=== PATIENT | male | born 1955 | race Caucasian/White ===

== ENCOUNTER 2023-11-02 11:24 | Emergency (ER) | payer OTHER ==
[~2023-11-02] VITALS: Ht 180.3 cm; Wt 99.7 kg
[2023-11-02 11:38] LABS: BASOPHILS 1.6 % (0-2); EOSINOPHILS 0.9 % (0-6); HEMATOCRIT 51.5 % (35.0-50.0); HEMOGLOBIN 17.8 g/dL (12.0-18.0); MCH 33.8 (27-36); MCHC 34.6 g/dl (30-36); MCV 97.7 fl (81-99); MONOCYTES 9.5 % (0-12); PLATELET COUNT 235 K/uL (140-440); RBC 5.27 M/ul (4.3-5.7); RDW 14.7 (10.5-15.0)
[2023-11-02] MEDS ORDERED: ASPIRIN 81 MG CHEW PO ONE (11:45)
[2023-11-02] MEDS ORDERED: NITROGLYCERIN 0.4 MG SUBL SL PRN (11:45)
[2023-11-02 11:53] LABS: ALBUMIN 3.8 g/dL (3.4-5.0); ALBUMIN/GLOBULIN RATIO 0.97 (1.1-2.4); ANION GAP 13.2 (7-21); BILIRUBIN, TOTAL 0.8 ng/dL (0.2-1.0); BUN/CREATININE RATIO 11.29 (6.0-28.6); CALCIUM 9.2 mg/dL (8.5-10.1); CREATININE, SERUM 1.24 mg/dL (0.70-1.30); MAGNESIUM 1.8 mg/dL (1.8-2.4); POTASSIUM 4.2 mmol/L (3.5-5.1); PROTEIN, TOTAL 7.7 g/dL (6.4-8.2)
--- OUTSIDE RECORDS SUMMARY | 2023-11-02 13:31 | XMS ---
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 No recent Security Events currently on file CRITERIA MET - [facility] - [facility] - 2 Visits in 30 Days CARE PROVIDERS -[facility] Dentist: Doctor Of Dental Medicine [facility] Reading PHONE: [phone] -[place]- Dentist: Doctor Of Dental Medicine [facility] PHONE: [phone] [facility]/Center: [facility] Current [facility] \F\ [place] ([facility]) [facility] PHONE: [phone] Le[place]on has no Care Guidelines for this patient. E.D. VISIT COUNT (12 MO.) 3 [facility] 1 [facility] [place]. TOTAL 4 NOTE: Visits indicate total known visits. ED/UCC VISIT TRACKING (12 MO.) 11/02/2023 11:25 [facility] [place] [place] TYPE: Emergency COMPLAINT: - CHEST PAIN 10/20/2023 11:01 [facility] [place] TYPE: Emergency DIAGNOSES: - Homicidal ideations - Patient's other noncompliance with medication regimen for other reason - Suicidal ideations - MENTAL HEALTH 06/07/2023 14:59 [employer] [facility] [place] TYPE: Emergency DIAGNOSES: - ST elevation (STEMI) myocardial infarction of unspecified site - CHEST PAINS 05/15/2023 18:47 [employer] [facility] [place] TYPE: Emergency DIAGNOSES: - ST elevation (STEMI) myocardial infarction involving right coronary artery - Chest Pain INPATIENT VISIT TRACKING (12 MO.) 06/07/2023 16:00 [facility] TYPE: Medical Surgical COMPLAINT: - STEMI Inferior AL V Tachy COPD DIAGNOSES: 0. Non-ST elevation (NSTEMI) myocardial infarction 1. Stenosis of coronary artery stent, initial encounter 2. ST elevation (STEMI) myocardial infarction involving other coronary artery of inferior wall 3. Hypopituitarism 4. Essential (primary) hypertension 5. Hyperlipidemia, unspecified 6. Gastro-esophageal reflux disease without esophagitis 7. Hypotension, unspecified 8. Atherosclerotic heart disease of [place] coronary artery without angina pectoris 9. Depression, unspecified 10. Male erectile dysfunction, unspecified 11. Patient's noncompliance with other medical treatment and regimen due to unspecified reason 12. Other surgical procedures as the cause of abnormal reaction of the patient, or of later complication, without mention of misadventure at the time of the procedure 13. Other specified places as the place of occurrence of the external cause 05/15/2023 20:17 [facility] [place] Medical [place] COMPLAINT: - INF STEMI PCI RCA DIAGNOSES: 0. ST elevation (STEMI) myocardial infarction involving other coronary artery of inferior wall 1. ST elevation (STEMI) myocardial infarction involving other coronary artery of inferior wall 2. Hypopituitarism 3. Essential (primary) hypertension 4. Hyperlipidemia, unspecified 5. Type 2 diabetes mellitus without complications 6. Gastro-esophageal reflux disease without esophagitis 7. Male erectile dysfunction, unspecified 8. Secondary polycythemia 9. Depression, unspecified 10. Personal history of nicotine dependence [email or web address]
[2023-11-02 15:13] VITALS: BP 122/64
--- NOTE | 2023-11-02 16:08 | EKG ---
[facility] [address] [place] [address] Signed Normal sinus rhythm Possible Inferior infarct , age undetermined Abnormal ECG No previous ECGs available Confirmed by ROBSON LEE MD ([id number]) on 11/02/2023 4:08:00 PM Electronically Signed By: ROBSON LEE 11/02/23 1608 PATIENT NAME: CONCHITA MONTALVO Electrocardiogram DATE OF : 55 PHYSICIAN: ROBSON LEE REPORT #: [id number] REPORT IS CONFIDENTIAL AND NOT TO BE RELEASED WITHOUT AUTHORIZATION
== END 2023-11-02 15:18 | disposition home or self-care (01) ==
LOC: ED 11:24
PROVIDERS: Emergency Medicine
DX: R07.9 Chest pain, unspecified (principal); R45.851 Suicidal ideations; I25.2 Old myocardial infarction; Z95.5 Presence of coronary angioplasty implant and graft
CPT/HCPCS: 36415; 71045; 80053; 83735; 84484; 85025; 93005; 93010; 99285-25; A9270